=== PATIENT | female | born 1950 | race Caucasian/White ===

== ENCOUNTER 2020-01-31 10:36 | Emergency (ER) | payer MEDICARE ==
[2020-01-31 10:56] VITALS: RESP 18
--- NOTE | 2020-01-31 11:12 | ED ---
General Adult HPI - General Chief complaint: Extremity Injury, Upper Stated complaint: FALL HAND INJURY Time Seen by Provider: 01/31/20 10:57 Source: patient, RN notes reviewed Mode of arrival: ambulatory Limitations: no limitations - History of Present Illness Initial comments: 69-year-old female presents to the emergency department for chief complaint of left wrist pain. Patient reports that she fell out of her camper about 2 steps last night onto the left hand. Patient states it only hurts when moving it. But she is concerned there could be a hairline fracture. Patient denies any numbness or tingling in the left hand. Patient does have a ring on the left fourth does not want removed and will return if it starts to get tight. She did not hit her head. She does not take blood thinners.Patient has no other complaints at this time including shortness of breath, chest pain, abdominal pain, nausea or vomiting, headache, or visual changes. - Related Data Allergies Allergy/AdvReac Type Severity Reaction Status Date / Time No Known Allergies Allergy Verified 01/31/20 10:55 Review of Systems ROS Statement: Those systems with pertinent positive or pertinent negative responses have been documented in the HPI. ROS Other: All systems not noted in ROS Statement are negative. Past Medical History History of Any Multi-Drug Resistant Organisms: None Reported Additional Past Surgical History / Comment(s): gastric bypass Smoking Status: Never smoker Past Alcohol Use History: None Reported Past Drug Use History: None Reported General Exam Limitations: no limitations General appearance: alert, in no apparent distress Head exam: Present: atraumatic, normocephalic, normal inspection Eye exam: Present: normal appearance, PERRL, EOMI. Absent: scleral icterus, conjunctival injection, periorbital swelling ENT exam: Present: normal exam, mucous membranes moist Neck exam: Present: normal inspection, full ROM. Absent: tenderness, meningismus, lymphadenopathy Respiratory exam: Present: normal lung sounds bilaterally. Absent: respiratory distress, wheezes, rales, rhonchi, stridor Cardiovascular Exam: Present: regular rate, normal rhythm, normal heart sounds. Absent: systolic murmur, diastolic murmur, rubs, gallop, clicks Extremities exam: Present: full ROM (Full range of motion of the left wrist.), tenderness (Tenderness noted to the dorsal distal radius, no tenderness in the scaphoid. No tenderness in the left hand.), normal capillary refill (Capillary refill less than 2 seconds, radial pulse 2+ in the left upper extremity.), other (No signs of external trauma. No significant edema. ). Absent: pedal edema, joint swelling, calf tenderness Course Vital Signs 01/31/20 10:50 Temperature 99.2 F Pulse Rate 82 Respiratory 18 Rate Blood Pressure 117/80 O2 Sat by Pulse 99 Oximetry Medical Decision Making - Medical Decision Making Vitals are stable. X-ray of the left hand and wrist are negative for acute frac ture. However patient does have significant tenderness noted to the dorsal radius distal aspect. Patient will be splinted given concern for occult fracture. Patient is not from the area and is going home this week. She will follow-up with her primary care for repeat x-rays and can be referred to orthopedics through them. Discussed return parameters. Patient did allow us to remove ring, this was removed by Ana VAZQUEZ telephone technician. Disposition Clinical Impression: Wrist pain, left Disposition: HOME SELF-CARE Instructions (If sedation given, give patient instructions): Wrist Injury (ED) Additional Instructions: Please follow up with your doctor next week. You will need repeat x-rays and possible orthopedic referral. Take Tylenol 3 for pain but do not drive while taking this. Keep splint dry. Return to the emergency room for any worsening symptoms. Is patient prescribed a controlled substance at d/c from ED?: No Referrals: Nonstaff,Physician [Primary Care Provider] - 1-2 days Time of Disposition: 12:19
--- NOTE | 2020-01-31 12:05 | XR ---
EXAMINATION TYPE: XR wrist complete LT, XR hand complete LT DATE OF EXAM: 01/31/2020 CLINICAL HISTORY: Pain after fall injury. TECHNIQUE: Frontal, lateral and oblique images of the left hand and wrist are obtained. Additional f ourth left scaphoid view acquired. COMPARISON: None FINDINGS: Osseous structures are demineralized. There is no acute fracture/dislocation evident in th e left wrist. [id number] triscaphe joint space narrowing. Mild to moderate narrowing and spur ring base of first metacarpal. The overlying soft tissue appears unremarkable. No acute fracture or dislocation in the left hand. PIP/DIP joints show severe narrowing with subchond ral cystic change and marginal spurring. Some ulnar and dorsal subluxation at the second through four th PIP joints is present. Ankylosis fourth DIP joint is present. IMPRESSION: There is no acute fracture or dislocation in the left hand or wrist.
[2020-01-31] MEDS ORDERED: ACET/COD 300 MG/30 MG STARTER PACK 6 TAB BTL PO STA (12:13)
[2020-01-31 12:41] VITALS: BP 121/74; PULSE 80; TEMP 98.9
== END 2020-01-31 12:40 | disposition home or self-care (01) ==
LOC: EC 10:36
DX: M25.532 Pain in left wrist (principal); Z98.84 Bariatric surgery status
CPT/HCPCS: 29125; 99283